=== PATIENT | female | born 1995 | race American Indian/Alaskan Native ===

== ENCOUNTER 2021-08-06 11:39 | Emergency (ER) | payer SELFPAY ==
--- NOTE | 2021-08-06 12:18 | Emergency Department Report ---
ED Eye Problem HPI - General Chief complaint: Eye Problems Stated complaint: EYES IRRITATION Time Seen by Provider: 08/06/21 12:01 Source: patient Mode of arrival: Ambulatory Limitations: No Limitations - History of Present Illness Initial comments: Patient presents bilateral eye pain over the last 1 to 2 days. She was treated with antibiotics for conjunctivitis within the last week. She stated that she got better. She started wearing the same contacts again. Now she has similar symptoms. She does not fact wear contact lenses. She tried to disinfect her lenses. She is not certain that worked. There is no trauma. She has no blurry vision or double vision. She is complaining of pain in both eyes. It is a burning and stinging pain. This feels slightly better when her eyes are shot. There has been a slight discharge from both eyes as well. She has no cough or congestion. There is no fever. There is no vomiting. She does report that she always has some popping in her left ear and always has some problems with allergies. She does not know if that is related or not. - Related Data Previous Rx's Medication Instructions Recorded Last Taken Type Erythromycin [Erythromycin Ophth 1 cm OU QID #3.5 tube 08/06/21 Unknown Rx Oint] guaiFENesin ER [Mucinex ER] 600 mg PO Q12H #14 tablet.er 08/06/21 Unknown Rx Allergies Allergy/AdvReac Type Severity Reaction Status Date / Time No Known Allergies Allergy Verified 08/06/21 11:49 ED Review of Systems ROS: Stated complaint: EYES IRRITATION Other details as noted in HPI Comment: All other systems reviewed and negative Constitutional: denies: fever Eyes: as per HPI ENT: denies: throat pain Respiratory: denies: cough Cardiovascular: denies: chest pain Endocrine: denies: unexplained weight loss Gastrointestinal: denies: abdominal pain Genitourinary: denies: dysuria Musculoskeletal: denies: back pain Skin: denies: rash Neurological: denies: headache Hematological/Lymphatic: denies: easy bruising ED Past Medical Hx - Past Medical History Previous Medical History?: No - Family History Family history: no significant - Social History Smoking Status: Never Smoker - Medications Home Medications: Home Medications Medication Instructions Recorded Confirmed Last Taken Type Erythromycin [Erythromycin Ophth 1 cm OU QID #3.5 tube 08/06/21 Unknown Rx Oint] guaiFENesin ER [Mucinex ER] 600 mg PO Q12H #14 tablet.er 08/06/21 Unknown Rx ED Physical Exam - General Limitations: No Limitations, Other (Pulse ox noted and normal) General appearance: alert, in no apparent distress - Head Head exam: Present: atraumatic, normocephalic, normal inspection - Eye Eye exam: Present: PERRL, EOMI, conjunctival injection (Bilateral), other (Thick mucopurulent discharge is noted in both eyes). Absent: scleral icterus, nystagmus, periorbital swelling, periorbital tenderness - ENT ENT exam: Present: normal exam, normal orophraynx, TM's normal bilaterally, normal external ear exam - Neck Neck exam: Present: normal inspection. Absent: meningismus - Respiratory Respiratory exam: Present: normal lung sounds bilaterally. Absent: respiratory distress - Cardiovascular Cardiovascular Exam: Present: regular rate, normal rhythm - GI/Abdominal GI/Abdominal exam: Present: soft. Absent: tenderness - Extremities Exam Extremities exam: Present: normal capillary refill - Back Exam Back exam: Absent: CVA tenderness (R), CVA tenderness (L) - Neurological Exam Neurological exam: Present: alert, oriented X3, normal gait - Psychiatric Psychiatric exam: Present: normal affect, normal mood - Skin Skin exam: Present: warm, dry ED Course - Reevaluation(s) Reevaluation #1: 08/06/21 12:46 Patient was given medicine and discharged ED Medical Decision Making - Medical Decision Making Patient presents primarily with eye issues. He has bilateral conjunctivitis. We discussed contact lens use. She was treated for conjunctivitis empirically. We placed her on erythromycin. She can avoid contacts and wear new contacts. There is no evidence of corneal abrasion. She does not have direct or consensual photophobia suggestive of iritis. She also reported some allergies and popping in her left ear. I do not appreciate any evidence of fluid buildup. She does not have evidence of otitis or effusion. There is no evidence of perforation. She was treated with Mucinex for her allergies and referred for follow-up. Critical Care Time: No Critical care attestation.: If time is entered above; I have spent that time in minutes in the direct care of this critically ill patient, excluding procedure time. ED Disposition Clinical Impression: Conjunctivitis Qualifiers: Conjunctivitis type: acute Acute conjunctivitis type: unspecified Laterality: bilateral Qualified Code(s): H10.33 - Unspecified acute conjunctivitis, bilateral Eustachian tube dysfunction Qualifiers: Laterality: left Qualified Code(s): H69.82 - Other specified disorders of Eustachian tube, left ear Disposition: 01 HOME / SELF CARE / HOMELESS Is pt being admited?: No Condition: Stable Instructions: Eustachian Tube Dysfunction, How to Use Eye Drops and Eye Ointments Additional Instructions: DO NOT WEAR CONTACTS FOR 7 DAYS. THEN USE A NEW PAIR. RETURN FOR PROBLEMS. SEE YOUR REGULAR DOCTOR FOR RECHECK. Prescriptions: Erythromycin [Erythromycin Ophth Oint] 1 cm OU QID #3.5 tube guaiFENesin ER [Mucinex ER] 600 mg PO Q12H #14 tablet.er Referrals: PRIMARY MD [email or web address] [Referring] - 3-5 Days MACIEL LING MD [Staff Physician] - 3-5 Days
[2021-08-06] MEDS ORDERED: TETRACAINE 0.5% OPHTH SOLN 4ML OU ONE (12:20)
== END 2021-08-06 13:24 | disposition home or self-care (01) ==
LOC: ED 11:39
DX: H10.33 Unspecified acute conjunctivitis, bilateral (principal); H69.82 Other specified disorders of Eustachian tube, left ear
CPT/HCPCS: 99282